=== PATIENT | male | born 1980 | race Caucasian/White ===

== ENCOUNTER 2017-11-01 10:56 | Emergency (ER) | END 2017-11-01 15:32 | disposition home or self-care (01) ==

== ENCOUNTER 2017-11-02 00:28 | Emergency (ER) | END 2017-11-02 02:30 | disposition home or self-care (01) ==

== ENCOUNTER 2017-11-02 04:49 | Emergency (ER) | END 2017-11-02 06:38 | disposition home or self-care (01) ==

== ENCOUNTER 2017-11-02 11:26 | Emergency (ER) | END 2017-11-02 12:37 | disposition home or self-care (01) ==

== ENCOUNTER 2017-11-26 02:19 | Emergency (ER) | END 2017-11-26 04:47 | disposition home or self-care (01) ==

== ENCOUNTER 2018-01-17 04:19 | Emergency (ER) | END 2018-01-17 06:57 | disposition home or self-care (01) ==